=== PATIENT | male | born 1950 | race Caucasian/White ===

== ENCOUNTER 2020-01-19 | Outpatient (REF) | payer MEDICARE, SELFPAY ==
[2020-01-19 07:56] LABS: Hematocrit 21.8 % (42-52); Mean Corpuscular HGB Conc 32.1 g/dl (31.0-36.0); Mean Corpuscular Hemoglobin 27.7 pg (27.0-33.0); Mean Corpuscular Volume 86.2 fL (80-98); Mean Platelet Volume 9.6 fL (9.4-12.4); Platelet Count 397 X10*3/uL (160-400); Red Blood Count 2.53 X10*6/uL (4.60-5.80); Red Cell Distribution Width 13.9 % (11.0-16.0); White Blood Count 6.3 X10*3/uL (4.8-10.8)
[2020-01-19 08:32] LABS: Alanine Aminotransferase 14 U/L (0-40); Albumin Level 3.1 g/dL (3.5-5.0); Alkaline Phosphatase 55 U/L (39-117); Anion Gap 13 (12-20); Aspartate Amino Transferase 17 U/L (5-37); Bilirubin Total 0.5 mg/dL (0.0-1.0); Blood Urea Nitrogen 13 mg/dL (9-16); Calcium 8.2 mg/dL (8.4-10.2); Carbon Dioxide 25 mmol/L (22-29); Chloride 101 mmol/L (96-108); Estimated Glomerular Filt Rate > 60; Glucose Random 94 mg/dL (60-115); Potassium 4.2 mmol/l (3.3-5.1); Sodium 135 mmol/L (135-145); Total Protein 5.8 g/dL (6.5-8.0)
== END 2020-01-19 00:01 | disposition home or self-care (01) ==
LOC: HO.MMNH1L
PROVIDERS: Visit Provider Family Medicine
DX: U07.1 COVID-19 (principal); R79.89 Other specified abnormal findings of blood chemistry
CPT/HCPCS: 36415; 80053; 85027

== ENCOUNTER 2020-01-20 07:26 | Outpatient (REF) | payer MEDICARE, SELFPAY ==
[2020-01-20 07:31] LABS: MANUAL DIFF FLAG NO
[2020-01-20 08:23] LABS: Basophils Percent Auto 0.4 % (0-2); Eosinophils Absolute Auto 0.2 X10*3/uL (0.0-0.4); Eosinophils Percent Auto 3.5 % (0-4); Imm Gran Abs Auto 0.02 X10*3/uL (0.00-0.03); Imm Gran Pct Auto 0.4 % (0.0-0.4); Lymphocytes Absolute Auto 1.5 X10*3/uL (1.2-4.9); Mean Corpuscular HGB Conc 32.1 g/dl (31.0-36.0); Mean Corpuscular Hemoglobin 27.6 pg (27.0-33.0); Mean Platelet Volume 9.5 fL (9.4-12.4); Monocytes Absolute Auto 0.6 X10*3/uL (0.1-1.2); Monocytes Percent Auto 11.4 % (2-11); Neutrophils Percent Auto 56.3 % (45-73); Platelet Count 360 X10*3/uL (160-400); Red Blood Count 2.43 X10*6/uL (4.60-5.80); Red Cell Distribution Width 14.1 % (11.0-16.0); White Blood Count 5.4 X10*3/uL (4.8-10.8)
[2020-01-20 08:51] LABS: Hematocrit 20.9 % (42-52); Hemoglobin 6.7 g/dl (14.0-18.0)
== END 2020-01-20 07:27 | disposition home or self-care (01) ==
LOC: HO.MMNH1L 07:26
PROVIDERS: Visit Provider Family Medicine
DX: N17.9 Acute kidney failure, unspecified (principal)
CPT/HCPCS: 36415; 85025; 85060

== ENCOUNTER 2020-01-21 07:32 | Outpatient (REF) | payer MEDICARE, SELFPAY ==
[2020-01-21 09:00] LABS: Hematocrit 21.2 % (42-52); Mean Corpuscular HGB Conc 31.6 g/dl (31.0-36.0); Mean Corpuscular Hemoglobin 27.2 pg (27.0-33.0); Mean Corpuscular Volume 86.2 fL (80-98); Mean Platelet Volume 9.5 fL (9.4-12.4); Platelet Count 385 X10*3/uL (160-400); Red Blood Count 2.46 X10*6/uL (4.60-5.80); Red Cell Distribution Width 14.2 % (11.0-16.0)
[2020-01-21 10:08] LABS: Hemoglobin 6.7 g/dl (14.0-18.0)
== END 2020-01-21 07:33 | disposition home or self-care (01) ==
LOC: HO.MMNH1L 07:32
PROVIDERS: Visit Provider Family Medicine
DX: U07.1 COVID-19 (principal); A41.9 Sepsis, unspecified organism
CPT/HCPCS: 36415; 80053; 85027

== ENCOUNTER 2020-01-22 07:41 | Outpatient (REF) | payer MEDICARE, SELFPAY ==
[2020-01-22 08:05] LABS: Mean Corpuscular HGB Conc 31.6 g/dl (31.0-36.0); Mean Corpuscular Hemoglobin 27.2 pg (27.0-33.0); Mean Platelet Volume 9.3 fL (9.4-12.4); Platelet Count 362 X10*3/uL (160-400); Red Blood Count 2.43 X10*6/uL (4.60-5.80); Red Cell Distribution Width 14.2 % (11.0-16.0); White Blood Count 5.6 X10*3/uL (4.8-10.8)
[2020-01-22 08:44] LABS: Hematocrit 20.9 % (42-52); Hemoglobin 6.6 g/dl (14.0-18.0)
== END 2020-01-22 07:42 | disposition home or self-care (01) ==
LOC: HO.MMNH1L 07:41
PROVIDERS: Visit Provider Family Medicine
DX: R79.9 Abnormal finding of blood chemistry, unspecified (principal)
CPT/HCPCS: 36415; 85027

== ENCOUNTER → 2022-06-28 13:09 | Outpatient (BNVA) | payer MEDICARE, SELFPAY | PROVIDERS: PCP Internal Medicine; Visit Provider Neurological Surgery | DX: M48.061 Spinal stenosis, lumbar region without neurogenic claudication (principal); M51.36 Other intervertebral disc degeneration, lumbar region | CPT/HCPCS: 99202 ==

== ENCOUNTER → 2024-11-17 13:42 | Outpatient (BNVA) | payer MEDICARE, SELFPAY | PROVIDERS: PCP Internal Medicine; Visit Provider Psychiatry & Neurology Neurology | DX: M48.061 Spinal stenosis, lumbar region without neurogenic claudication (principal); G62.9 Polyneuropathy, unspecified; M51.362 Other intervertebral disc degeneration, lumbar region with discogenic back pain and lower extremity pain; R73.03 Prediabetes; Z98.1 Arthrodesis status; M54.50 Low back pain, unspecified; G89.29 Other chronic pain; M21.372 Foot drop, left foot | CPT/HCPCS: 99212 ==

== ENCOUNTER → 2024-11-17 13:42 | Outpatient (AMB) | payer MEDICARE, SELFPAY ==
--- NOTE | 2024-11-17 13:51 | MHC.OFFVIS ---
Intake Visit Reasons: MRI review Allergies lisinopril Allergy (Unknown, Verified 06/28/22 13:48) Hives prednisone Allergy (Unknown, Verified 06/28/22 13:48) Hives HPI Comments Details: 74 yo man with chronic low back pain with multiple back surgeries. His first back surgery was in 2007 due to old service injury. At that time, pain was in lower back going to left leg. After that surgery pain went away for a while but he was also getting cortisone shots. After many years, pain got worse again, same pain, and he had another back surgery in 2022, with fusion at L 3/[address]ajardo. He had some complications, including PE, and he stayed in hospital for many moths. He has been at home since Feb. He continues to have pain in his lower back from one to the other side. It was not going to the legs as before. Pain was noted when he was up and about. Sometimes it was severe and especially so if he moved in a wrong way. Walking made pain worse and sitting made it better. He could not stand up straight. 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 This condition developed in association with a prediabetic state and is affected by his post-surgical spinal status. Previously, he underwent multiple back surgeries, with the most recent in July 2024. Despite surgery, he reports persistent bilateral leg numbness and left leg foot drop. His ongoing issues include sharp pain in the back and significant walking difficulty, necessitating the use of a cane. A preexisting severe neuropathy has been identified as the primary cause of his symptoms. The patient mentioned increased symptoms following recent hospital stays for bacterial infections, during which his lack of physical activity worsened his condition. These factors necessitated a conversation about alternative pain management as current Tylenol usage is inadequate. [facility] Medical History (Updated 11/17/24 @ 14:16 by Chase Rendon MD) Peripheral neuropathy Review of Systems Const Details: - Musculoskeletal: Reports chronic back pain, post-surgical back status, drop foot in left leg. - Neurological: Reports bilateral leg numbness and weakness, drop foot and neuropathic pain. - General: Denies new systemic symptoms post last check. Assessment & Plan Assessment & Plan (1) Lumbar spinal stenosis due to adjacent segment disease after fusion procedure: Comment: EMG/NCS LEs at [facility] in May 2024: Severe axonal SM PN MRI LS spine WO at [facility] in July 2024: post surgical changes with hardware, w/o stenosis Code(s): M48.061 - Spinal stenosis, lumbar region without neurogenic claudication; M51.36 - Other intervertebral disc degeneration, lumbar region Category: Medical (2) Peripheral neuropathy: Comment: Throughout the visit, I emphasized the value of maintaining physical activity for patient welfare, since inactivity tends to exacerbate symptoms. We discussed that there are no viable surgical options currently since his MRI shows adequate post-surgical results except mild neuropathy symptoms. Duloxetine was introduced as an appropriate non-addictive medication that can potentially mitigate the neuropathic pain. Risks and benefits associated with duloxetine were explained, aiming to achieve meaningful albeit partial pain relief. Maintaining activity and recovery from transient infections is neil to managing neuropathic symptoms. We acknowledged the ongoing nature of symptom management and agreed to monitor and manage any exacerbations or complications. Follow-up in three months is planned to evaluate response to treatment. Code(s): G62.9 - Polyneuropathy, unspecified Category: Medical Qualifiers: Peripheral neuropathy type: polyneuropathy, unspecified Qualified Code(s): G62.9 - Polyneuropathy, unspecified (3) Neuropathic pain: Code(s): M79.2 - Neuralgia and neuritis, unspecified Category: Medical Plan Impression recommendations: 74 years old man with severe axonal sensory motor peripheral neuropathy associated with prediabetic condition, multiple back surgeries though his last MRI in July of 2024 revealed no significant stenosis of foramina or spine with intact hardware. He continues to have multiple symptoms including weakness pain numbness in his legs and back. He was educated about his conditions explaining that there was no further surgical option at this time. Mainstay of management is staying active as as long as he was active he would be okay. If for some reason he would get sick and not move too much for a day or 2, his overall situation could easily worsened. For pain control, relatively benign non habit-forming medicines is recommended. I would try duloxetine. Pain control and this type of situation is almost all was partial. Medications: New duloxetine 20 mg PO BID 180 caps 0RF Coding Level of Care Code Est Pt Level 4 (00451) Diagnoses Lumbar spinal stenosis due to adjacent segment disease after fusion procedure M48.061; M51.36 Peripheral polyneuropathy G62.9 Peripheral neuropathy type: polyneuropathy, unspecified Neuropathic pain M79.2
--- OUTSIDE RECORDS SUMMARY | 2024-11-17 16:06 | XMS_ITS | Clinical Summary ---
Author Organization [facility] Address [address] [place] [address] Care Team Providers Care Handicrafts Teacher Name Role Phone Wil Pang MD Primary Care Provider [phone] Allergies Active Allergy Reactions Criticality Noted Date Comments Lisinopril 11/19/2012 + cough Prednisone Other (See Comments) 07/30/2012 Medications Medication Sig Dispensed Refills Start Date End Date Status aspirin 81 MG tablet Take by mouth. 0 Active carvedilol (COREG) 3.125 MG tablet Take one pill by mouth in the AM and two pills by mouth in the PM 0 03/19/2018 Active hydroxychloroquine (PLAQUENIL) 200 MG tablet Take 200 mg by mouth. 0 12/12/2017 Active linaclotide (LINZESS) 145 MCG CAPS Take 1 capsule by mouth. 0 02/07/2018 Active LORazepam (ATIVAN) 1 MG tablet Take 1 mg by mouth. 0 01/01/2017 Activ e losartan (COZAAR) tablet 25 mg Take 25 mg by mouth. 0 07/25/2017 Ac tive omeprazole (PriLOSEC) 20 MG capsule Take 20 mg by mouth. 0 06/26/2017 Acti ve sildenafil (VIAGRA) 100 MG tablet TAKE 1 TABLET DAILY NEEDED FOR ERECTILE DYSFUNCTION 0 12/16/2015 Active Active Problems Problem Noted Date Diagnosed Date Arthritis of left glenohumeral joint 07/23/2018 Arthritis of right glenohumeral joint 07/23/2018 Family History Medical History Relation Name Comments Cancer Brother Cancer Father Hypertension Father Hypertension Mother Cancer Sister Relation Name Status Comments Brother Father Mother Sister Social History Tobacco Use Types Packs/Day Years Used Date Smoking Tobacco: Former Smokeless Tobacco: Never Alcohol Use Standard Drinks/Week Comments Yes 0 (1 standard drink = 0.6 oz pur e alcohol) Occasional Sex and Gender Information Value Date Recorded Sex Assigned at Not on file Gender Identity Not on file Sexual Orientation Not on file Job Start Date Occupation Industry Not on file Not on file Not on file Last Filed Vital Signs Vital Sign Reading Time Taken Comments Blood Pressure 130/62 05/12/2020 2:07 PM EDT Pulse 79 05/12/2020 2:07 PM EDT Temperature 37 C (98.6 F) 05/12/2020 2:07 PM EDT Respiratory Rate - - Oxygen Saturation 100% 05/12/2020 2:07 PM EDT Inhaled Oxygen Concentration - - Weight 83.9 kg (185 lb) 05/12/2020 2:07 PM EDT Height 188 cm (6' 2 ) 05/12/2020 2:07 PM EDT Body Mass Index 23.75 05/12/2020 2:07 PM EDT Plan of Treatment Health Maintenance Due Date Last Done Comments Hepatitis C Screening 1950 Depression Screening 1961 Preventative Health Evaluation 1967 DTap / Tdap / Td (1 - Tdap) 02/21/1968 Colon Cancer Screening (Colonoscopy) 1994 Shingrix-Zoster Vaccine (1 of 2) 1999 Fall Risk Assessment 2014 Pneumococcal Vaccine (2 of 2 - PPSV23 or PCV20) 10/14/2020 10/15/2019 RSV Adult > 60+ Yrs or (1 - 1-dose 75+ series) 02/21/2024 COVID-19 Vaccine (3 - season) 2024 04/15/2020, 03/25/2020 Influenza Vaccine (#1) 2024 0, 11/20/2018, 11/09/2017, Additional history exists Hepatitis B Vaccines Aged Out No long er eligible based on patient's age to complete this topic RSV Ped < 20 months Aged Out No longe r eligible based on patient's age to complete this topic Care Teams Handicrafts Teacher Relationship Specialty Start Date End Date Wil Pang MD [address] [place] [address] [place] [address] PCP - General Internal Medicine 04/22/20
--- OUTSIDE RECORDS SUMMARY | 2024-11-17 16:07 | XMS_ITS ---
Author Organization [facility] Care Team Providers Care Lockstitch Binder Name Role Phone Inna Sosa Unavailable Unavailable Meeta Napoles Unavailable Unavailable Allergies and adverse reactions Code CodeSystem Substance Reaction Severity StartDate Concern Status 8640 RXNORM predniSONE Unknown 12/20/2022 active Care Team Name Role Address Phone Organization Dates Inna Sosa [address] [facility] [address], [place], [address], [place] (Office): : : [facility] [place] [facility] 01/02/2023 - 02/13/2023 Meeta Napoles [address] [place], [address], [place] (Office): : : [facility] [place] 01/02/2023 - 02/13/2023 Immunizations Immunization Status Vaccine Details Vaccine Code CodeSystem Date Notes TB 1 Step Mantoux (PPD) new tuberculin skin test; purified protein derivative solution, intradermal 96 CVX created date: 01/13/2023 consent date: 01/13/2023 TB skin test read per EMR: negative & 0 mm TDAP(tetanus/dip th/pertuss) completed tetanus toxoid, reduced diphtheria toxoid, and acellular pertussis vaccine, adsorbed 115 CVX created date: 01/16/2023 administer ed date: 02/27/2022 Pneumovax Dose 3 -if indicated completed pneumococcal polysaccharide vaccine, 23 valent 33 CVX created date: 12/18/2022 administer ed date: 10/24/2019 COVID-19 Vaccine Dose 1 completed unknown vaccine or immune globulin Mfg: PF 999 CVX created date: 12/18/2022 administer ed date: 03/25/2020 COVID-19 Vaccine Dose 2 completed unknown vaccine or immune globulin Mfg: PF 999 CVX created date: 12/18/2022 administer ed date: 04/15/2020 COVID-19 Vaccine Additional Dose/Booster completed unknown vaccine or immune globulin Mfg: mod 999 CVX created date: 12/18/2022 administer ed date: 09/05/2021 COVID-19 Vaccine Additional Dose/Booster completed unknown vaccine or immune globulin Mfg: mod 999 CVX created date: 12/18/2022 administer ed date: 12/01/2020 Flu Vaccine Prior To Admission (historical only) completed unknown vaccine or immune globulin 999 CVX created date: 12/18/2022 administer ed date: 11/28/2021 Influenza Fluzone High Dose 0.7ML dose (CVX 197) cancelled Influenza, high-dose, split virus, quadrivalent, injectable, preservative free 197 CVX created date: 01/17/2023 consent date: 01/17/2023 refused stating I received a shot this November Mental Status Section Date Assessment Total Score Description 02/13/2023 CAM 0 No delirium ind icated 01/05/2023 BIMS 13 cognitively int act CAM 0 No delirium ind icated PHQ-9 06 mild depression Insurance Providers Problems Problem # Description Date of onset Resolved Date Code CodeSystem Concern Status 1 URINARY TRACT INFECTION, SITE NOT SPECIFIED 02/07/2023 N39.0 ICD-10-CM active 2 ACIDOSIS, UNSPECIFIED 01/02/2023 E87.20 ICD-10- CM active 3 ACUTE KIDNEY FAILURE , UNSPECIFIED 01/02/2023 N17.9 ICD-10-CM active 4 ACUTE RESPIRATORY FAILURE WITH HYPOXIA 01/02/2023 J96.01 ICD-10-CM active 5 ANGIODYSPLASIA OF COLON WITHOUT HEMORRHAGE 01/02/2023 K55.20 ICD-10-CM active 6 GASTRO-ESOPHAGEAL REFLUX DISEASE WITHOUT ESOPHAGITIS 01/02/2023 K21.9 ICD-10-CM active 7 HYPERCALCEMIA 01/02/2023 E83.52 ICD-10-CM activ e 8 HYPERKALEMIA 01/02/2023 E87.5 ICD-10-CM active 9 HYPOVOLEMIC SHOCK 01/02/2023 R57.1 ICD-10-CM a ctive 10 INSOMNIA, UNSPECIFIED 01/02/2023 G47.00 ICD-10- CM active 11 OTHER CARDIOMYOPATHIES 01/02/2023 I42.8 ICD-10-CM active 12 OTHER PULMONARY EMBOLISM WITHOUT ACUTE COR PULMONALE 01/02/2023 I26.99 ICD-10-CM active 13 OTHER SPECIFIED ABNORMALITIES OF PLASMA PROTEINS 01/02/2023 R77.8 ICD-10-CM active 14 OTHER SPECIFIED INTERSTITIAL PULMONARY DISEASES 01/02/2023 J84.89 ICD-10-CM active 15 RADIATION PROCTITIS 01/02/2023 K62.7 ICD-10-CM active 16 ANEMIA, UNSPECIFIED 12/18/2022 D64.9 ICD-10-CM active 17 ANXIETY DISORDER, UNSPECIFIED 12/18/2022 F41.9 ICD-10-CM active 18 BENIGN PROSTATIC HYPERPLASIA WITHOUT LOWER URINARY TRACT SYMPTOMS 12/18/2022 N40.0 ICD-10-CM active 19 CARDIOMYOPATHY, UNSPECIFIED 12/18/2022 I42.9 ICD-10-CM active 20 DYSPHAGIA, UNSPECIFIED 12/18/2022 R13.10 ICD-10-CM active 21 ESOPHAGITIS, UNSPECIFIED WITHOUT BLEEDING 12/18/2022 K20.90 ICD-10-CM active 22 ESSENTIAL (PRIMARY) HYPERTENSION 12/18/2022 I10 ICD-10-CM active 23 FOOT DROP, LEFT FOOT 12/18/2022 M21.372 ICD-10-C M active 24 FUSION OF SPINE, LUMBAR REGION 12/18/2022 M43.26 ICD-10-CM active 25 GASTRO-ESOPHAGEAL REFLUX DISEASE WITH ESOPHAGITIS, WITHOUT BLEEDING 12/18/2022 12/18/2022 K21.00 ICD-10-CM completed 26 HYPERLIPIDEMIA, UNSPECIFIED 12/18/2022 E78.5 ICD-10-CM active 27 HYPOKALEMIA 12/18/2022 12/18/2022 E87.6 ICD-10-CM comp leted 28 MALIGNANT NEOPLASM O F PROSTATE 12/18/2022 C61 ICD-10-CM active 29 NON-ST ELEVATION (NSTEMI) MYOCARDIAL INFARCTION 12/18/2022 I21.4 ICD-10-CM active 30 FABIOLA SYNDROME 12/18/2022 K59.81 ICD-10-CM ac tive 31 OTHER ABNORMAL GLUCOSE 12/18/2022 R73.09 ICD-10-CM active 32 PRIMARY OSTEOARTHRITIS, UNSPECIFIED SITE 12/18/2022 M19.91 ICD-10-CM active 33 RHEUMATOID ARTHRITIS , UNSPECIFIED 12/18/2022 M06.9 ICD-10-CM active 34 SPINAL STENOSIS, LUMBAR REGION WITHOUT NEUROGENIC CLAUDICATION 12/18/2022 M48.061 ICD-10-CM active Reason for Referral No Reasons for Referral Entered Social History Social History Observation Description Start Date End Date Code Code System Current Smoking Status Tobacco smoking consumption unknown [id number] SNOMED CT Sex Assigned At Male 1950 42366-6 [facility] Gender Identity Sexual Orientation Vital Signs Code Code System Vitals Name Values and Units Timing Information 06346-2 [facility] Pain Level Value=0.0 02/13/2023 9279-1 [facility] Respiratory Rate Value=17.0 Units=/m in 02/13/2023 8310-5 [facility] Body Temperature Value=98.0 Units= F 02/13/2023 8867-4 [facility] Heart rate Value=88.0 Units=/min 03/2023 53725-2 [facility] O2 % BldC Oximetry Value=98.0 Units= % 02/13/2023 8462-4 [facility] Blood Pressure-Diastolic Value=63 Un its=mmHg 02/13/2023 8480-6 [facility] Blood Pressure-Systolic Nkksd=159 Un its=mmHg 02/13/2023 61869-9 [facility] Weight Gtwqg=126.6 Units=Lbs 8302-2 LOINC Height Value=68.0 Units=Inches 01/12/2023
--- OUTSIDE RECORDS SUMMARY | 2024-11-17 16:07 | XMS_ITS | Encounter Summary ---
Author Organization [facility] Address [address] [place] [address] Care Team Providers Care Marketing Research Intern Name Role Phone Bogdan Chakraborty MD Primary Care Provider [phone] Encounter Details Date Type Department Care Team (Late st Contact Info) Description 09/30/2020 Scanned Document [facility] Urologic Surgery [place] [address] [facility] [address] [place] [address] Charlie Holland MD [address] [place] [address] [address] [place] [address] Social History Tobacco Use Types Packs/Day Years Used Date Smoking Tobacco: Never Assessed Sex and Gender Information Value Date Recorded Sex Assigned at Not on file Legal Sex Male 1:00 PM EDT Gender Identity Not on file Sexual Orientation Not on file documented as of this encounter Plan of Treatment Not on file documented as of this encounter Visit Diagnoses Not on filedocumented in this encounter Care Teams Marketing Research Intern Relationship Specialty Start Date End Date Bogdan Chakraborty MD PCP - General Urology 09/29/20 documented as of this encounter
--- OUTSIDE RECORDS SUMMARY | 2024-11-17 16:07 | XMS_ITS | Encounter Summary ---
Author Organization [facility] Address [address] [place] [address] Care Team Providers Care Coremaker Machine Name Role Phone Wil Pang MD Primary Care Provider Un available Reason for Visit * Reason Comments home health cert Encounter Details Date Type Department Care Team (Late st Contact Info) Description 01/01/2024 [facility] Patient Not Present [facility] [address] [place] [address] Wil Pang MD needs address update Social History Tobacco Use Types Packs/Day Years Used Date Smoking Tobacco: Former Cigarettes 0.1 7 0 02/13/1964 - 02/12/1971 Smokeless Tobacco: Never Alcohol Use Standard Drinks/Week Comments Yes 0 (1 standard drink = 0.6 oz pur e alcohol) Sex and Gender Information Value Date Recorded Sex Assigned at Male 05/20/2024 3:50 PM EDT Legal Sex Male 12:53 AM EST Gender Identity Male 05/20/2024 3:50 PM EDT Sexual Orientation Straight 05/20/2024 3: 50 PM EDT documented as of this encounter Plan of Treatment Upcoming Encounters Date Type Department Care Team (Late st Contact Info) Description 05/04/2025 1:00 PM EDT Office Visit Gastroenterology - [place] [address] [place] [phone] Trena Tai PA [address] [place] [address] documented as of this encounter Visit Diagnoses Not on filedocumented in this encounter Care Teams Coremaker Machine Relationship Specialty Start Date End Date Wil Pang MD PCP - General Internal Medicine 11/11/19 documented as of this encounter
--- OUTSIDE RECORDS SUMMARY | 2024-11-17 16:07 | XMS_ITS | Encounter Summary ---
Author Organization [facility] Address [address] [place] [address] Care Team Providers Care Wireless Engineer Name Role Phone Wil Pang MD Primary Care Provider Un available Reason for Visit * Reason Onset Date Comments Results 10/27/2024 lmtcb please tra nsfer call to ext : [phone] thanks. PEDRO SHAW Encounter Details Date Type Department Care Team (Late Contact Info) Description 10/27/2024 Telephone Internal Medicine - [facility] [address] [place] [address] Nat Emmanuel [place] Social History Tobacco Use Types Packs/Day Years [...] 1:00 PM EDT Office Visit Gastroenterology - [place] [address] [place] [phone] Trena Tai PA [address] [place] [address] documented as of this encounter Visit Diagnoses Not on filedocumented in this encounter Care Teams Wireless Engineer Relationship Specialty Start Date End Date Wil Pang MD PCP - General Internal Medicine 11/11/19 documented as of this encounter
--- OUTSIDE RECORDS SUMMARY | 2024-11-17 16:07 | XMS_ITS | Encounter Summary ---
Author Organization [facility] [address] [place] [address] Care Team Providers Care Meat Passer Name Role Phone Bogdan Chakraborty MD Primary Care Provider [phone] Encounter Details Date Type Department Care Team (Late st Contact Info) Description 09/30/2020 Scanned Document [facility] Urologic Surgery [address] [place] [phone] Rivera Patrick MD [address] [place] [address] [address] [place] [address] Social History Tobacco Use Types Packs/Day Years [...] on filedocumented in this encounter Care Teams Meat Passer Relationship Specialty Start Date End Date Bogdan Chakraborty MD PCP - General Urology 09/29/20 documented as of this encounter
--- OUTSIDE RECORDS SUMMARY | 2024-11-17 16:07 | XMS_ITS | Encounter Summary ---
Author Organization [facility] Address [address] [place] [address] Care Team Providers Care Hop Strainer Name Role Phone Wil Pang MD Primary Care Provider Un available Encounter Details Date Type Department Care Team (Late st Contact Info) Description 10/24/2024 Telephone Internal Medicine - [place] [address] [place] [address] Josefina Huddleston MA Social History Tobacco Use Types Packs/Day [...] PM EDT documented as of this encounter Progress Notes * Josefina Huddleston MA - 10/24/2024 3:57 PM EDT Lvm to return call forward to ext [phone] or B side * Josefina Huddleston MA - 10/24/2024 3:56 PM EDT ----- Message from Saleem Pang MD sent at 10/24/2024 11:43 AM EDT ----- Please inform the patient that his kidney function is slightly elevated from his baseline. I would like him to gently increase his water intake and recheck his kidney function again in 2 weeks. He should continue to follow-up with his kidney doctor for his chronic kidney disease. documented in this encounter Plan of Treatment Upcoming Encounters Date Type Department Care Team (Late st Contact Info) Description 05/04/2025 1:00 PM EDT Office Visit Gastroenterology - [place] [address] [facility] [address] [address] [place] [address] Trena Tai PA [address] [place] [address] documented as of this encounter Visit Diagnoses Not on filedocumented in this encounter Care Teams Hop Strainer Relationship Specialty Start Date End Date Wil Pang MD PCP - General Internal Medicine 11/11/19 documented as of this encounter
--- OUTSIDE RECORDS SUMMARY | 2024-11-17 16:07 | XMS_ITS | Clinical Summary ---
Author Organization [facility] Address [address] [place] [address] Care Team Providers Care Panel Sewer Name Role Phone Bogdan Chakraborty MD Primary Care Provider [phone] Social History Tobacco Use Types Packs/Day Years Used Date Smoking Tobacco: Never Assessed Sex and Gender Information Value Date Recorded Sex Assigned at Not on file Legal Sex Male 1:00 PM EDT Gender Identity Not on file Sexual Orientation Not on file Plan of Treatment Health Maintenance Due Date Last Done Comments Advance Care Planning 1950 Hepatitis C Virus Screening 1950 DTaP/Tdap/Td Vaccines (1 - Tdap) 02/21/1968 Colonoscopy 1994 Pneumococcal Vaccines 50+ (1 of 1 - PCV) 1999 Zoster (Shingles) Vaccine (1 of 2) 1999 RSV Vaccine 60 years and old er and Patients (1 - 1-dose 75+ series) 02/21/2024 Influenza Vaccine 09/12/2024 COVID-19 Vaccine ( - 2023-2 5 season) 2024 Hepatitis B Vaccines Aged Out No long er eligible based on patient's age to complete [place] [id number] [facility] MEDICARE Care Teams Panel Sewer Relationship Specialty Start Date End Date Bogdan Chakraborty MD PCP - General Urology 09/29/20
--- OUTSIDE RECORDS SUMMARY | 2024-11-17 16:07 | XMS_ITS | Encounter Summary ---
Author Organization [facility] Address [address] [place] [address] Care Team Providers Care Equal Opportunity Representative Name Role Phone Bogdan Chakraborty MD Primary Care Provider [phone] Encounter Details Date Type Department Care Team (Late st Contact Info) Description 09/30/2020 Scanned Document [facility] Urologic Surgery [place] [address] [facility] [address] [place] [address] Bogdan Chakraborty MD [address] [facility] [address] [place] [address] Social History Tobacco Use Types Packs/Day Years [...] on filedocumented in this encounter Care Teams Equal Opportunity Representative Relationship Specialty Start Date End Date Bogdan Chakraborty MD PCP - General Urology 09/29/20 documented as of this encounter
--- OUTSIDE RECORDS SUMMARY | 2024-11-17 16:07 | XMS_ITS | Encounter Summary ---
Author Organization [facility] Address [address] [place] [address] Care Team Providers Care Safekeeping Clerk Name Role Phone Bogdan Chakraborty MD Primary Care Provider [phone] Encounter Details Date Type Department Care Team (Late st Contact Info) Description 09/30/2020 Scanned Document [facility] Urologic Surgery [place] [address] [facility] [address] [place] [address] Bogdan Chakraborty MD [address] [facility] [address] [place] [address] Social History Tobacco Use Types Packs/Day Years [...] on filedocumented in this encounter Care Teams Safekeeping Clerk Relationship Specialty Start Date End Date Bogdan Chakraborty MD PCP - General Urology 09/29/20 documented as of this encounter
--- OUTSIDE RECORDS SUMMARY | 2024-11-17 16:07 | XMS_ITS ---
Author Organization [facility] Care Team Providers Care [employer] Name Role Phone Arash Ho Unavailable Unavailable Maura Del Angel Unavailable Unavailable Allergies and adverse reactions No Known Allergies Care Team Name Role Address Phone Organization Dates Arash Ho PCP [address] [facility] [address], [place], [address], [place] (Office): : [facility] 01/17/2020 - 02/03/2020 Maura Del Angel [address] [facility] [address], [address], [facility] (Office): [facility] 01/17/2020 - 02/03/2020 Immunizations Immunization Status Vaccine Details Vaccine Code CodeSystem Holland e Notes Influenza completed Influenza, split virus, trivalent, injectable, contains preservative 141 CVX created date: 01/17/2020 consent date: 01/21/2020 administered date: 10/15/2019 TB 2 Step Mantoux Skin Test completed tuberculin skin test; unspecified formulation Given Left Forearm Step 1 of Multi-step with next step required 98 CVX created date: 01/27/2020 consent date: 01/27/2020 administered date: 01/26/2020 TB 2 Step Mantoux Skin Test completed tuberculin skin test; unspecified formulation Given Right Forearm Step 1 of Multi-step with next step required 98 CVX created date: 01/17/2020 consent date: 01/21/2020 administered date: 01/18/2020 PCV13 (Pneumococcal Conjugate)Vaccine completed pneumococcal conjugate vaccine, 13 valent 133 CVX created date: 01/17/2020 administered date: 10/15/2019 Mental Status Section Date Assessment Total Score Description 02/03/2020 BIMS 15 cognitively int act CAM 0 No delirium ind icated PHQ-9 00 01/23/2020 BIMS 14 cognitively int act CAM 0 No delirium ind icated PHQ-9 00 Insurance Providers Problems Problem # Description Date of onset Resolved Date Code CodeSystem Concern Status 1 UNSTEADINESS ON FEET 01/26/[address] active 2 ACUTE KIDNEY FAILURE , UNSPECIFIED 01/17/[address] active 3 ACUTE POSTHEMORRHAGI C ANEMIA 01/17/[address] active 4 ACUTE RESPIRATORY FAILURE WITH HYPOXIA 01/17/[address] active 5 COGNITIVE COMMUNICATION DEFICIT 01/17/[address] active 6 COVID-19 01/17/[address] active 7 DIZZINESS AND GIDDINESS 01/17/[address] active 8 DYSPHAGIA, OROPHARYNGEAL PHASE 01/17/[address] active 9 GASTROINTESTINAL HEMORRHAGE, UNSPECIFIED 01/17/[address] active 10 HYPERKALEMIA 01/17/[address] activ e 11 ORTHOSTATIC HYPOTENSION 01/17/[address] active 12 OTHER CARDIOMYOPATHIES 01/17/[address] active 13 OTHER MALAISE 01/17/[address] act geovanna 14 SEPSIS, UNSPECIFIED ORGANISM 01/17/[address] active 15 UNSPECIFIED SYSTOLIC (CONGESTIVE) HEART FAILURE 01/17/[address] active 16 WEAKNESS 01/17/[address] active Reason for Referral No Reasons for Referral Entered Social History Social History Observation Description Start Date End Date Code Code System Current Smoking Status Tobacco smoking consumption unknown 142329293 SNOMED CT Sex Assigned At Male 1950 [facility] Gender Identity Sexual Orientation Vital Signs Code Code System Vitals Name Values and Units Timing Information 9279-1 LOINC Respiratory Rate Value=16.0 Units=/m in 02/03/2020 8310-5 [facility] Body Temperature Value=97.9 Units= F 02/03/2020 58645-1 [facility] O2 % BldC Oximetry Value=96.0 Units= % 02/03/2020 32344-8 [facility] Pain Level Value=0.0 02/03/2020 8462-4 [facility] Blood Pressure-Diastolic Value=64 Un its=mmHg 02/02/2020 8480-6 [facility] Blood Pressure-Systolic Pbxan=083 Un its=mmHg 02/02/2020 8867-4 [facility] Heart rate Value=87.0 Units=/min 74058-6 INC Weight Blvrx=042.0 Units=Lbs 2339-0 [facility] Blood Sugar Ccrci=920.0 Units=mg/dL 01/26/2020 8302-2 [facility] Height Value=74.0 Units=Inches 01/17/2020
--- OUTSIDE RECORDS SUMMARY | 2024-11-17 16:07 | XMS_ITS | Clinical Summary ---
Author Organization [place] [address] [facility] Building Address [address] [place], [place] [address] [address] Phone Care Team Providers Care Brick Pitcher Name Role Phone Wil Pang MD Primary Care Provider Un available Allergies Active Allergy Reactions Criticality Noted Date Comments Lisinopril Cough Low 11/19/2012 + cough Prednisone Hives,Other Low 07/30/2012 Medications atorvastatin (LIPITOR) 80 mg tablet Take 1 tablet (80 mg total) by mouth 1 (one) time each day. Active gabapentin (NEURONTIN) 300 mg capsule Take 1 capsule (300 mg total) by mouth 2 (two) times a day. Active acetaminophen (TYLENOL) 500 mg tablet TK 2 TS PO Q 8 H Active magnesium oxide 400 mg magnesium capsule Take 200 mg by mouth 1 (one) time each day. Active ferrous sulfate 325 mg (65 mg elemental iron) tablet Take 1 tablet (325 mg total) by mouth 1 (one) time each day. Active sacubitriL-honey sartan (Entresto) 24-26 mg per tablet Take 0.5 Tabs by mouth 2 times daily. 1 Active aspirin 81 mg EC tablet 1 TABLET DAILY Active LORazepam (ATIVAN) 0.5 mg tablet Take 1 tablet (0.5 mg total) by mouth every 6 (six) hours if needed. 4 Active apixaban (Eliquis) 2.5 mg tablet Take 1 tablet (2.5 mg total) by mouth 2 (two) times a day. 180 tablet 1 5 Active carvediloL (COREG) 3.125 mg tablet Take 2 tablets (6.25 mg total) by mouth 2 (two) times a day with meals. Active empagliflozin (JARDIANCE) 10 mg tablet Take 1 tablet (10 mg total) by mouth 1 (one) time each day in the morning. Active spironolactone (ALDACTONE) 25 mg tablet Take 0.5 tablets (12.5 mg total) by mouth 1 (one) time each day. 11/04/19 25 Discontinued Active Problems Problem Noted Date Diagnosed Date Essential hypertension 09/02/2024 Chronic kidney disease 02/19/2024 Assessment & Plan (02/19/2024 5:24 PM EST): Creatinine slowly improving. He will avoid NSAIDs. He is already been referred to nephrology. Will continue to monitor. Pulmonary embolism (CMS/HCC V24, CMS/HCC V28) Overview (02/19/2024): Mar 01, 2023 Entered By: SINDHU HENSON Comment: Had a Pulmonary Embolism Whilst At An In-Patient Rehab FEB 03 (or early MAR 07) Mar 01, 2023 Entered By: SINDHU HENSON Comment: Was in [facility] Mar 01, 2023 Entered By: SINDHU HENSON Comment: Was Already on DOAG Before PE Happened (I Think) Assessment & Plan (10/06/2024 2:33 PM EDT): Currently on apixaban 2.5 mg twice a day. Denies any overt bleeding. Assessment & Plan (02/19/2024 5:24 PM EST): Appreciated to loader operator/oncologist recommendation. Will reduce his apixaban dose to 2.5 mg twice a day as he is not too active. Will keep him on prophylactic dose until he gets more active. Pancreatic cyst 01/15/2024 Assessment & Plan (10/06/2024 2:33 PM EDT): Referral to gastroenterology placed to follow-up on his pancreatic cyst and to determine next screening colonoscopy. Orders: Ambulatory referral to Gastroenterology; Future Assessment & Plan (01/15/2024 2:08 PM EST): He is already being followed by GI for his pancreatic cyst. He has an upcoming appointment scheduled. Anemia 12/12/2023 Assessment & Plan (10/06/2024 2:33 PM EDT): He does have anemia of chronic kidney disease and followed up with hematology. He will continue follow-up with nephrology as well for CKD. Assessment & Plan (02/19/2024 5:24 PM EST): He did follow-up with hematology and can continue follow-up with them for his anemia. Assessment & Plan (12/31/2023 7:12 PM EST): Regards to his anemia, will check a CBC, iron, vitamin B12, folic acid levels. I placed referral to hematology for his anemia, weight loss. Orders: CBC and differential; Future Iron; Future Vitamin B12 and folate; Future Thyroid stimulating hormone with reflex to free t4 and free t3; Future Ambulatory referral to Hematology / Oncology; Future Ambulatory referral to Gastroenterology; Future HIV 1,2 antibody, p24 antigen with reflex to differentiation; Future Comprehensive metabolic panel; Future Cyst of pancreas 02/12/2023 Dyspnea 10/02/2022 Overview (12/12/2023): Dyspnea Hyperchloremia 10/02/2022 Lumbar stenosis with neurogenic claudication 02/2022 Overview (12/12/2023): Last Assessment & Plan: I reviewed this in detail with Mr. Thurston including the opinion from Dr. [place] to proceed with an L3-4 fusion (OLLIF) and I agree that he would benefit from treating the L3-4 level. I expect that his back pain is both from the stenosis and widely splayed facets implying instability and anticipate a 60 to 70% improvement in his back pain from a decompression and fusion. The stenosis however, his worse on the right from the large extruded fragment feeling a portion of the canal and the foramen while his leg pain is worse on the left. As such, I would do a standard midline decompression to address both levels rather than a TLIF. I do not think any surgery at this point will change the foot drop that he has had for greater than 10 years. We discussed the details, risks, benefits and anticipated postoperative course and he wishes to proceed with an L3-4 decompression and PLIF. He will have a PT eval postoperatively and they can make the assessment regarding patient rehab or home PT. Assessment & Plan (02/26/2024 2:37 PM EST): I reviewed the history, x-rays and current exam with Mr. Thurston and his . The left foot drop is not so pronounced but he is careful walking. He is quite concerned that numbness in the right leg may lead to the same type of foot weakness. He has profound left hip weakness but no hip pain. He had significant adjacent segment disease preoperatively and will admit that his pain level has improved since surgery but he was really expecting to be better than this. The paresthesias seem to have progressed over the last several months to a year which is now 1-1/2 years out from surgery. He has had metabolic issues and is relatively inactive. There was some mention of neuropathy while he was in rehab but no formal testing was performed. I suggested sending him for bilateral lower extremity EMG now to look for neuropathy versus acute or chronic radiculopathy. Depending on the findings, we may suggest a new MRI or physical therapy. Type 2 diabetes mellitus ([facility] V24, [facility] V 28) 12/02/2021 Assessment & Plan (10/06/2024 2:33 PM EDT): Will monitor A1c levels. Based on levels, will consider restarting on empagliflozin. He will follow diabetic diet. Orders: Hemoglobin A1c; Future Lipid panel with reflex to direct LDL; Future Basic metabolic panel; Future Microalbumin creatinine urine ratio; Future Adenocarcinoma of prostate ([facility] V24, [facility] V28) 09/22/2020 Overview (12/12/2023): 2020:: Galindo 8-9. Treated with RT Osteoarthritis of left ankle 12/09/2019 Overview (12/12/2023): Fracture in the past. Osteoarthritis of glenohumeral joints, bilateral 04/09/2019 Cardiomyopathy ([facility] V24, [facility] V28) 2017 Overview (12/12/2023): 08/31 EF 20-25% Assessment & Plan (10/06/2024 2:33 PM EDT): He has upcoming appointments with cardiology next month. Continue aspirin, atorvastatin, carvedilol, Entresto, spironolactone. States he is not taking his empagliflozin. Assessment & Plan (02/19/2024 5:24 PM EST): Clinically is euvolemic on exam but his blood pressure is on the lower side. I have adjusted the spironolactone dose to half a tablet of his 25 mg daily. Continue current regimen of aspirin, atorvastatin, Entresto. Will monitor electrolytes. Orders: Basic metabolic panel; Future Assessment & Plan (01/15/2024 2:08 PM EST): Clinically is euvolemic on exam. He is scheduled for an echocardiogram with his cupola tapper, . He is currently on aspirin, atorvastatin, Entresto spironolactone. Sleep disturbance 11/29/2016 Atypical chest pain 11/06/2016 Liver mass 07/03/2016 Overview (12/12/2023): Benign Anxiety 06/26/2016 Lumbar degenerative disc disease 06/11/2014 Overview (12/12/2023): Hx of lumbar surgery -2007. Left foot drop. Last Assessment & Plan: Mr. Thurston is just over 2 weeks status post L3-4 decompression and fusion. He has been at [facility] for subacute rehab. His says that he really is not participating very much. I encouraged him to work more with physical therapy and spend more time vertical than horizontal. I made recommendations that they minimize or eliminate his narcotics in favor of Tylenol plus or minus tramadol. He should follow-up with Dr. Guajardo in 6 weeks for repeat evaluation with some x-rays of the lumbar spine. Osteoarthritis of hip 04/10/2012 Rheumatoid arthritis ([facility] V24, [facility] V28) 02/26/2012 Overview (12/12/2023): Onset 2010. Baseline OA shoulder,knees. RF and BERNABE positive. Baseline eye exam OK, 04/24. Hydroxychloroquine started 03/27. Eye exam OK 05/26, 10/30, 06/30 Hydroxychloroquine stopped August 2019 because of development of cardiomyopathy. Erectile dysfunction 08/31/2008 Hyperlipidemia 01/30/2006 Chronic back pain 07/31/2005 Overview (12/12/2023): LUMBAR DECOMPRESSION L4-5 AND L5-S1 DR CHANG 07/20 [facility] update Encounters Date Type Department Care Team Description 11/03/2024 1:00 PM EDT Office Visit Gastroenterology - [place] [address] [facility] [address] [facility] [address] [place] [address] Trena Tai PA Pancreatic cyst 10/27/2024 Telephone Internal Medicine - [place] [address] [place] [address] Nat Emmanuel [place] 10/24/2024 Telephone Internal Medicine - [place] [address] [place], [place] [address] [place] [address] Josefina Huddleston [place] 10/06/2024 2:00 PM EDT Office Visit Internal Medicine [facility] [place] [place] [address] Wil Pang MD Pancreatic cyst (Primary Dx); Pulmonary embolism, other, unspecified chronicity, unspecified whether acute cor pulmonale present ([facility] V24, [facility] V28); Anemia due to stage 3 chronic kidney disease, unspecified whether stage 3a or 3b CKD ([facility] V24, [facility] V28); Cardiomyopathy, unspecified type (CMS/HCC V24, [facility] V28); Type 2 diabetes mellitus with stage 3 chronic kidney disease, without long-term current use of insulin, unspecified whether stage 3a or 3b CKD ([facility] V24, [facility] V28) 09/02/2024 3:30 PM EDT Consult Nephrology - [address] [phone] Dereck Cheek MD Stage 3b chronic kidney disease ([facility] V24, [facility] V28) (Primary Dx); Essential hypertension; Cardiomyopathy, unspecified type ([facility] V24, [facility] V28) 08/19/2024 Telephone Internal Medicine - [address] [place], [place] [phone] Janie Morelos MA from Last 3 Months Immunizations Immunization Administration Dates Next Due H1N1 Inj Preservative Free 02/17/2009 Influenza trivalent, 0.5mL ( Fluad) 65yo and older 11/28/2021,11/20/2018,11/09/2017 Influenza trivalent, 0.5mL, preservative free (Fluarix; FluLaval; Fluzone) ages 6mo and older (Afluria) 3 years and older 09/26/2016,12/13/2008 Influenza trivalent, with pr eservative (Fluzone; Afluria) 6mo and older 12/16/2020,11/12/2020,10/24/2019,11/08 Influenza, Unspecified 11/28/2021,2020,11/20/2018,11/09 Pneumococcal polysaccharide 23 valent (Pneumovax 23) 2yo and older 10/24/2019 SARS-COV-2 (COVID-19) Vaccin e, Unspecified 04/15/2020,03/25/2020 Tdap Tetanus diptheria acell ular pertussis (Boostrix; Adacel) 7yo and older 02/27/2022 Surgical History Surgery Date Site/Laterality Comments CARPAL TUNNEL RELEASE 02/12/1979 - 02/12/1980 Right right OTHER SURGICAL HISTORY 02/12/2007 - 02/12/2008 L4-5, L5-S1 fusion, Dr. Chang KNEE ARTHROSCOPY W/ DEBRIDEMENT Right 1980's COLONOSCOPY 07/30/2012 normal; repeat in 10 yrs UPPER GASTROINTESTINAL ENDOSCOPY 07/28/2016 Enlarged ampulla BACK SURGERY 09/12/2022 - 10/12/2022 L3-4 decompression and fusion, Dr. Guajardo Medical History Medical History Date Comments Essential hypertension, benign 02/27/2005 D X:Essential hypertension, benign Osteoarthrosis, unspecified whether generalized or localized, unspecified site 02/27/2005 DX:Osteoarthrosis, unspecifi ed whether generalized or localized, unspecified site Osteoarthritis of glenohumeral joint 2011 DX:Osteoarthritis of glenohumeral joint CAD (coronary artery disease) 08/26/2009 DX :CAD (coronary artery disease) Other and unspecified hyperlipidemia 01/30/2006 DX:Other and unspecified hyperlipidemia Lumbar degenerative disc disease 06/11/2014 DX:Lumbar degenerative disc disease; COMMENT: Hx of lumbar surgery -2007. Left foot drop Osteoarthritis of left ankle 12/09/2019 DX: Osteoarthritis of left ankle; COMMENT: Fracture. Anemia DX:Anemia Cardiomyopathy (CMS/HCC V24, CMS/HCC V28) DX:Cardiomyopathy (HCC) Rheumatoid arthritis (CMS/HC C V24, CMS/HCC V28) DX:Rheumatoid arthritis (HCC ) Prostate cancer (CMS/HCC V24 , CMS/HCC V28) DX:Prostate cancer (HCC) Chest pain DX:Chest pain Anxiety state DX:Anxiety state Depressive disorder DX:Depressiv e disorder Type 2 diabetes mellitus (CM S/HCC V24, CMS/HCC V28) 12/02/2021 DX:Type 2 diabetes mellitus (HCC) Type 2 diabetes mellitus (CM S/HCC V24, CMS/HCC V28) 12/02/2021 DX:Type 2 diabetes mellitus (HCC) Starrucca syndrome DX:Nick synd donald Esophageal reflux DX:Esophageal reflux Weight loss DX:Weight loss Pancreatic cyst 01/15/2024 Family History Medical History Relation Name Comments No Known Problems Daughter 1 No Known Problems Daughter 2 Throat cancer Father Arthritis Mother Breast cancer Sister 1 Colon cancer Neg Hx Relation Name Status Comments Brother 1 Brother 2 Alive Brother 3 Alive Daughter 1 Alive Daughter 2 Alive Father Mother Alive Sister 1 Sister 2 Alive Social History Tobacco Use Types Packs/Day Years Used Date Smoking Tobacco: Former Cigarettes 0.1 7 0 02/13/1964 - 02/12/1971 Smokeless Tobacco: Never Tobacco Cessation:Counseling Given: Not Answered Alcohol Use Standard Drinks/Week Comments Yes 0 (1 standard drink = 0.6 oz pur e alcohol) Sex and Gender Information Value Date Recorded Sex Assigned at Male 05/20/2024 3:50 PM EDT Legal Sex Male 12:53 AM EST Gender Identity Male 05/20/2024 3:50 PM EDT Sexual Orientation Straight 05/20/2024 3: 50 PM EDT Obstetrics History Last Filed Vital Signs Vital Sign Reading Time Taken Comments Blood Pressure 92/48 11/03/2024 1:03 PM EDT Pulse 70 10/06/2024 2:02 PM EDT Temperature 36.1 C (97 F) 08/04/2024 3:10 PM EDT Respiratory Rate - - Oxygen Saturation 100% 08/04/2024 3:10 PM EDT Inhaled Oxygen Concentration - - Weight 71.9 kg (158 lb 9.6 oz) 11/03/2024 1:03 P M EDT Height 188 cm (6' 2 ) 11/03/2024 1:03 PM EDT Body Mass Index 20.36 11/03/2024 1:03 PM EDT Plan of Treatment Upcoming Encounters Date Type Department Care Team (Late st Contact Info) Description 05/04/2025 1:00 PM EDT Office Visit Gastroenterology - [place] [address] [facility] [address] [facility] [address] [place] [phone] Trena Tai PA [address] [facility] [address] [place] [address] Health Maintenance Due Date Last Done Comments Colorectal Cancer Screening: Colonoscopy 1949 Diabetes: Annual Foot Exam 1959 Diabetes: Annual Retina Eye Exam 1959 Falls Risk Assessment 01/21/2022 Social Influencers of Health Screening 01/21/2022 Medicare Annual Wellness Visit 07/12/2023 07/11/2022 Depression Screening 02/13/2024 COVID-19 Vaccine (7 - Mixed Product risk season) 2024 12/26/2023, 09/05/2021, 12/21/2020, Additional history exists Influenza Vaccine (#1) 2024 , 11/12/2022, 12/13/2021, Additional history exists Diabetes: Blood Sugar Control Test (HGBA1C) 04/13/2025 10/14/2024, 07/11/2022 Diabetes: Annual Urine Albumin-Creatinine Ratio (uACR) 10/21/2025 10/21/2024, 02/28/2022 Diabetes: Annual GFR (Glomerular Filtration Rate) 10/21/2025 10/21/2024, 07/10/2024, 02/12/2024, Additional history exists Hypertension/CHF/CAD Annual BMP Blood Test 10/21/2025 10/21/2024, 07/10/2024, 02/12/2024, Additional history exists Cholesterol Screening (Lipid Panel) 10/21/2029 10/21/2024, 08/26/2021 DTaP,Tdap,and Td Vaccines (5 - Td or Tdap) 10/16/2033 10/17/2023, 02/27/2022, 04/18/2011, Additional history exists Hepatitis C Screening Completed 02/19/2012 Abdominal Aortic Aneurysm (AAA) Screen Completed 09/05/2021, 06/15/2016 Zoster Vaccines Completed 09/26/2021, 01/05/2021 Pneumococcal Vaccine: 50+ Years Completed 06/04/2023, 10/24/2019, 10/15/2019 RSV Immunization Adult Patients Completed 12/26/2023, 12/21/2023 HIB Vaccines Aged Out No longer eligi ble based on patient's age to complete this topic HPV Vaccines Aged Out No longer eligi ble based on patient's age to complete this topic Hepatitis A Vaccines Aged Out No long er eligible based on patient's age to complete this topic Hepatitis B Vaccines Aged Out No long er eligible based on patient's age to complete this topic IPV Vaccines Aged Out No longer eligi ble based on patient's age to complete this topic MMR Vaccines Aged Out No longer eligi ble based on patient's age to complete this topic Meningococcal ACWY Vaccine Aged Out N o longer eligible based on patient's age to complete this topic Meningococcal B Vaccine Aged Out No l onger eligible based on patient's age to complete this topic RSV Immunization Patients Under 20 months Aged Out No longer eligible based on patient's age to complete this topic Varicella Vaccines Aged Out No longer eligible based on patient's age to complete this topic Procedures Procedure Name Priority Date/Time Associated Diagnosis Comments MICROALBUMIN CREATININE URINE RATIO Routine 10/21/2024 3:58 PM EDT Type 2 diabetes mellitus with stage 3 chronic kidney disease, without long-term current use of insulin, unspecified whether stage 3a or 3b CKD ([facility] V24, [facility] V28) LIPID PANEL WITH REFLEX TO DIRECT LDL Routine 10/21/2024 3:39 PM EDT Type 2 diabetes mellitus with stage 3 chronic kidney disease, without long-term current use of insulin, unspecified whether stage 3a or 3b CKD (CMS/HCC V24, [facility] V28) BASIC METABOLIC PANEL Routine 10/21/2024 3:39 PM EDT Type 2 diabetes mellitus with stage 3 chronic kidney disease, without long-term current use of insulin, unspecified whether stage 3a or 3b CKD (CMS/HCC V24, [facility] V28) HEMOGLOBIN A1C Routine 10/14/2024 1:02 PM EDT Type 2 diabetes mellitus with stage 3 chronic kidney disease, without long-term current use of insulin, unspecified whether stage 3a or 3b CKD (CMS/HCC V24, [facility] V28) ABDOMINAL AORTIC ANEURYSM SCRREN Routine 09/05/2021 HEPATITIS C SCREENING Routine 02/19/2012 from Last 3 Months or Most Recently Relevant to Health Maintenance Results * (ABNORMAL) Microalbumin creatinine urine ratio (10/21/2024 3:58 PM EDT) Creatinine, Urine 130.0 mg/dL LAB CHEMISTRY METHOD 10/21/2024 7:43 PM EDT [facility] Microalb, Ur 37.7(H) 0.0 - 29.0 mg/L LAB CHEMISTRY METHOD 10/21/2024 7:43 PM EDT [facility] Microalb/Crea t Ratio 29 <30 mg/g creat LAB CHEMISTRY METHOD 10/21/2024 7:43 PM EDT [facility] Urine Urine specimen obtained by clean catch procedure / Unknown Non-blood Collection / Unknown 10/21/2024 3:58 PM EDT 10/21/2024 3:58 PM EDT us Wil Pang MD LAB URINE ORDERABLES Armida l Result [facility] [address] [place] [address], [place] [phone] * Lipid panel with reflex to direct LDL (10/21/2024 3:39 PM EDT) Cholesterol 123 0 - 200 mg/dL LAB CHEMISTRY METHOD 10/21/2024 7:24 PM EDT [facility] Triglycerides 67 0 - 150 mg/dL LAB CHEMISTRY METHOD 10/21/2024 7:24 PM EDT [facility] HDL 64 >=40 mg/dL LAB CHEMISTRY METHOD 10/21/2024 7:24 PM EDT [facility] LDL Calculated 46 0 - 100 mg/dL LAB CHEMISTRY METHOD 10/21/2024 7:24 PM EDT [facility] Comment:Estimated LDL Calcul ated using equation: Total cholesterol - HDL cholesterol - (Triglycerides/5) VLDL Cholesterol Miguel 13.4 mg/dL LAB CHEMISTRY METHOD 10/21/2024 7:24 PM EDT [facility] Non HDL Chol. (LDL+VLDL) 59 <145 mg/dL LAB CHEMISTRY METHOD 10/21/2024 7:24 PM EDT [facility] Chol/HDL Ratio 1.9 0.0 - 4.4 LAB CHEMISTRY METHOD 10/21/2024 7:24 PM [facility] Blood Venous blood specimen / Unknown Venipuncture / Unknown 10/21/2024 3:39 PM EDT 10/21/2024 3:39 PM EDT Wil Pang MD LAB BLOOD ORDERABLES Armida l Result [facility] [address] [place] [address], * (ABNORMAL) Basic metabolic panel (10/21/2024 3:39 PM EDT) Sodium 139 133 - 145 mmol/L LAB CHEMISTRY METHOD 10/21/2024 7:24 PM EDT [facility] Potassium 4.9 3.5 - 5.5 mmol/L LAB CHEMISTRY METHOD 10/21/2024 7:24 PM [facility] Chloride 110 96 - 110 mmol/L LAB CHEMISTRY METHOD 10/21/2024 7:24 PM [facility] CO2 25 21 - 32 mmol/L LAB CHEMISTRY METHOD 10/21/2024 7:24 PM [facility] Anion Gap 4 3 - 11 LAB CHEMISTRY METHOD 10/21/2024 7:24 PM [facility] Glucose 89 70 - 100 mg/dL LAB CHEMISTRY METHOD 10/21/2024 7:24 PM [facility] BUN 35(H) 5 - 25 mg/dL LAB CHEMISTRY METHOD 10/21/2024 7:24 PM [facility] Creatinine 1.86(H) 0.70 - 1.30 mg/dL LAB CHEMISTRY METHOD 10/21/2024 7:24 PM [facility] eGFR 37(L) >=60 mL/min/1. 73m2 LAB CHEMISTRY METHOD 10/21/2024 7:24 PM [facility] Comment:Calculation based on the Chronic Kidney Disease Epidemiology Collaboration (CKD-EPI) equation refit without adjustment for race. BUN/Creatinine Ratio 18.8 LAB CHEMISTRY METHOD 10/21/2024 7:24 PM [facility] Calcium 9.4 8.5 - 10.5 mg/dL LAB CHEMISTRY METHOD 10/21/2024 7:24 PM EDT [facility] Blood Venous blood specimen / Unknown Venipuncture / Unknown 10/21/2024 3:39 PM EDT 10/21/2024 3:39 PM EDT Wil Pang MD LAB BLOOD ORDERABLES Armida l Result Performing Organization Address [facility] [[email or web address]] Co de Phone Number [facility] [address] [place] [address], [place] [phone] * Hemoglobin A1c (10/14/2024 1:02 PM EDT) [facility] Hemoglobin A1C 6.4 <6.5 % LAB CHEMISTRY METHOD 10/14/2024 10:22 PM EDT [facility] Mean Bld Glu Estim. 137 mg/dL LAB CHEMISTRY METHOD 10/14/2024 10:22 PM EDT [facility] Blood Venous blood specimen / Unknown Venipuncture / Unknown 10/14/2024 1:02 PM EDT 10/14/2024 1:02 PM EDT Wil Pang MD LAB BLOOD ORDERABLES Armida l Result Performing Organization Address [facility] [[email or web address]] Co de Phone Number [facility] [address] [place] [address], [place] [phone] * Abdominal Aortic Aneurysm Screen (09/05/2021) Abdominal Aortic Aneurysm (AAA) Screening Abstracted Anatomical Region Laterality Modality Other Historical [place] [facility] Final Result * Hepatitis C Screening (02/19/2012) Pathologist [facility] Hepatitis C Screening Abstracted us Porfirio Haynes MD HEALTH MAINTENANCE Final Result from Last 3 Months or Most Recently Relevant to Health Maintenance Insurance [employer] MEDICARE [facility] Advance Directives Documents on File Type Date Recorded Patient Hospital Medicine Director Expl anation Health Care Decision (hx) 10/05/2022 AD HUTCHISON DIRECTIVE Health Care Decision (hx) 10/02/2022 AD HUTCHISON DIRECTIVE Health Care Decision (hx) 10/02/2022 AD HUTCHISON DIRECTIVE Health Care Decision (hx) 09/28/2022 AD HUTCHISON DIRECTIVE Health Care Decision (hx) 09/28/2022 AD HUTCHISON DIRECTIVE Health Care Decision (hx) 09/28/2022 AD HUTCHISON DIRECTIVE Care Teams Brick Pitcher Relationship Specialty Start Date End Date Wil Pang MD PCP - General Internal Medicine 11/11/19
== END ==
LOC: HO.HSM 13:43
PROVIDERS: PCP Internal Medicine; Visit Provider Psychiatry & Neurology Neurology
DX: M48.061 Spinal stenosis, lumbar region without neurogenic claudication (principal); M51.369 Other intervertebral disc degeneration, lumbar region without mention of lumbar back pain or lower extremity pain; G62.9 Polyneuropathy, unspecified; M79.2 Neuralgia and neuritis, unspecified
CPT/HCPCS: 99214